=== PATIENT | male | born 1960 | race American Indian/Alaskan Native ===

== ENCOUNTER 2017-05-19 01:06 | Emergency (ER) | payer OTHER ==
[~2017-05-19] VITALS: Ht 180.3 cm; Wt 101.2 kg
[~2017-05-19 01:06] MED LIST: ALDACTAZIDE 251 EACH PO; AMLODIPINE BESYL5 MG PO; ASPIR 8181 MG PO; ASPIRIN EC81 MG PO; AVAPRO300 MG PO; BACTRIM DS TAB1 EACH PO; CARAFATE1 GM/10 ML PO; CEPHALEXIN500 MG PO; CLOPIDOGREL75 MG PO; CLOTRIMAZOLE10 MG MM; COREG12.5 MG PO; COREG25 MG PO; COREG6.25 MG PO; CRESTOR40 MG PO; CRESTOR5 MG PO; DOXYCYCLINE HY100 MG PO; FENOFIBRATE160 MG PO; FLEXERIL10 MG PO; FLOMAX0.4 MG PO; GEMFIBROZIL600 MG PO; HYDROCODONE-AC118 ML PO; ISOSORBIDE MONO30 MG PO; LOSARTAN POTASS25 MG PO; MELOXICAM15 MG PO; METFORMIN HCL500 MG PO; NAPROXEN SODIU550 MG PO; NITROGLYCERIN0.4 MG SL; NORCO 5-325 TA1 EACH PO; NYSTATIN100000 UN1 PO; OMEPRAZOLE20 MG PO; PANTOPRAZOLE SO40 MG PO; PEPCID20 MG PO; PERCOCET 5-3251 EACH PO; PRAVACHOL40 MG PO; PRILOSEC20 MG PO; PROVENTIL HFA6.7 GM INH; RANITIDINE HCL300 M1 PO; SPIRONOLACTONE50 MG PO; TRAMADOL HCL50 MG PO; ZANAFLEX4 MG PO; ZITHROMAX250 MG PO
[2017-05-19] MEDS ORDERED: ZOFRAN ODT4 MG PO (01:21)
== END 2017-05-19 01:30 | disposition home or self-care (01) ==
LOC: ED 01:06
DX: K29.70 Gastritis, unspecified, without bleeding (principal); I10 Essential (primary) hypertension; E78.5 Hyperlipidemia, unspecified; I25.2 Old myocardial infarction; Z95.5 Presence of coronary angioplasty implant and graft; Z90.49 Acquired absence of other specified parts of digestive tract; Z88.1 Allergy status to other antibiotic agents; Z88.8 Allergy status to other drugs, medicaments and biological substances; Z79.82 Long term (current) use of aspirin; Z79.899 Other long term (current) drug therapy
CPT/HCPCS: 99283

== ENCOUNTER 2017-06-04 14:59 | Emergency (ER) | payer OTHER ==
[~2017-06-04] VITALS: Ht 180.3 cm; Wt 101.2 kg
[~2017-06-04 14:59] MED LIST changes: +ZOFRAN ODT4 MG PO
[2017-06-04] MEDS ORDERED: MAGNESIUM250 M1 PO (15:18)
--- OUTSIDE RECORDS SUMMARY | 2017-06-04 15:26 | XMS ---
Demographics + + + | Address | [address] | | | [address] | | | [place] [address] | + + + | Preferred Language | Unknown | + + + | Marital Status | Unknown | + + + | Synagogue Affiliation | Unknown | + + + | Race | Unknown | + + + | Ethnic Group | Unknown | + + + Author + + + | Author | [facility] | + + + | Organization | [facility] | + + + | Address | [address] | | | [place] [address] | + + + | Phone | | + + + Care Team Providers + + + + | Care Window Framer Name | Role | Phone | + + + + Unavailable | Unavailable | + + + + PROBLEMS +---------+ + + +--------+ + + | Type | Condition | ICD9-CM | [id number] | Onset | Condition | SNOMED | | | | Code | Code | Dates | Status | Code | +---------+ + + +--------+ + + | Problem | Influenza | | Z23 | | Active | [id number] | | | vaccine | | | | | 106 | | | needed | | | | | | +---------+ + + +--------+ + + | Problem | Screening | Z13.89 | | | Active | [id number] | | | for | | | | | | | | alcoholism | | | | | | +---------+ + + +--------+ + + | Problem | Hypertensi | I11.9 | | | Active | 34184759 | | | ve | | | | | | | | arterioscl | | | | | | | | erotic | | | | | | | | cardiovasc | | | | | | | | ular | | | | | | | | disease | | | | | | +---------+ + + +--------+ + + | Problem | Gastroesop | K21.9 | | | Active | [id number] | | | hageal | | | | | | | | reflux | | | | | | | | disease | | | | | | | | without | | | | | | | | esophagiti | | | | | | | | s | | | | | | +---------+ + + +--------+ + + | Problem | Essential | | I10 | | Active | 38849464 | | | hypertensi | | | | | | | | on | | | | | | +---------+ + + +--------+ + + | Problem | Type 2 | E11.9 | | | Active | 223837914 | | | diabetes | | | | | | | | mellitus | | | | | | | | without | | | | | | | | complicati | | | | | | | | on | | | | | | +---------+ + + +--------+ + + | Problem | Hyperchole | | E78.0 | | Active | [id number] | | | steremia | | | | | | +---------+ + + +--------+ + + ALLERGIES Unknown Allergies SOCIAL HISTORY No smoking Hx information available PLAN OF CARE VITAL SIGNS MEDICATIONS + + + + +--------+ + +--------+ | Medicati | Instruct | Dosage | Frequenc | Start | End Date | Duration | Status | | on | ions | | y | Date | | | | + + + + +--------+ + +--------+ | Carvedil | Orally | 1 tablet | | | | 30 days | Active | | ol 25 MG | twice | | | | | | | | | daily | | | | | | | + + + + +--------+ + +--------+ RESULTS No Results PROCEDURES No Known procedures IMMUNIZATIONS No Known Immunizations"
--- OUTSIDE RECORDS SUMMARY | 2017-06-04 15:26 | XMS ---
Demographics + + + | Address | [address] | | | [address] | | | [place] [address] | + + + | Preferred Language | Unknown | + + + | Marital Status | Unknown | + + + | Yazidism Affiliation | Unknown | + + + | Race | Unknown | + + + | Ethnic Group | Unknown | + + + Author + + + | Author | [facility] | + + + | Organization | [facility] | + + + | Address | [address] | | | [place] [address] | + + + | Phone | | + + + Care Team Providers + + + + | Care Tax Director Name | Role | Phone | + + + + Unavailable | Unavailable | + + + + PROBLEMS +---------+ + + +--------+ + + | Type | Condition | ICD9-CM | [id number] | Onset | Condition | SNOMED | | | | Code | Code | Dates | Status | Code | +---------+ + + +--------+ + + | Problem | Influenza | | Z23 | | Active | [id number] | | | vaccine | | | | | 106 | | | needed | | | | | | +---------+ + + +--------+ + + | Problem | Screening | Z13.89 | | | Active | 417362828 | | | for | | | | | | | | alcoholism | | | | | | +---------+ + + +--------+ + + | Problem | Hypertensi | I11.9 | | | Active | 94987000 | | | ve | | | [...] | K21.9 | | | Active | 162464818 | | | hageal | | | [...] | | I10 | | Active | 82763832 | | | hypertensi | | | | | | | | on | | | | | | +---------+ + + +--------+ + + | Problem | Type 2 | E11.9 | | | Active | 691174577 | | | diabetes | | | | | | | | mellitus | | | | | | | | without | | | | | | | | complicati | | | | | | | | on | | | | | | +---------+ + + +--------+ + + | Problem | Hyperchole | | E78.0 | | Active | 897616396 | | | steremia | | | | | | +---------+ + + +--------+ + + ALLERGIES + + + + +--------+ | Substance | Reaction | Event Type | Date | Status | + + + + +--------+ | Penicillin | Unknown | Drug Allergy | Jan, | Active | + + + + +--------+ | Lipitor | rash | Drug Allergy | Jan, | Active | + + + + +--------+ SOCIAL HISTORY No smoking Hx information available PLAN OF CARE + +---------+ | Activity | Details | + +---------+ +---+ | | +---+ + + + | Follow Up | prn Reason:null | + + + | Pending Test | Glucose, Finger Stick (IH) | + + + VITAL SIGNS + + + + | Height | 71 in | 2017-02-10 | + + + + | Weight | 223.9 lbs | 2017-02-10 | + + + + | BMI | 31.22 kg/m2 | 2017-02-10 | + + + + | Heart Rate | 61 /min | 2017-02-10 | + + + + | Blood pressure systolic | 126 mm Hg | 2017-02-10 | + + + + | Blood pressure diastolic | 71 mm Hg | 2017-02-10 | + + + + MEDICATIONS + + + + +--------+ + +--------+ | Medicati | Instruct | Dosage | Frequenc | Start | End Date | Duration | Status | | on | ions | | y | Date | | | | + + + + +--------+ + +--------+ | Metformi | Orally | 2 | 12h | | | 30 days | Active | | n HCl | Twice a | tablets | | | | | | | 500 MG | day | | | | | | | + + + + +--------+ + +--------+ | Magnesiu | Orally | 1 tablet | 24h | | | 30 | Active | | m 250 MG | Once a | with a | | | | day(s) | | | | day | meal | | | | | | + + + + +--------+ + +--------+ | Losartan | Orally | 1 tablet | 12h | | | | Active | | | bid | | | | | | | | Potassiu | | | | | | | | | m 25 MG | | | | | | | | + + + + +--------+ + +--------+ | Carvedil | Orally | 1 tablet | 12h | | | | Active | | ol 25 MG | Twice a | with | | | | | | | | day | food | | | | | | + + + + +--------+ + +--------+ | Aspirin | orally | 1 tablet | 24h | | | 30 | Active | | 81 mg | Once a | | | | | | | | | day | | | | | | | + + + + +--------+ + +--------+ RESULTS No Results PROCEDURES + + + + + | Procedure | Date Ordered | Related Diagnosis | Body Site | + + + + + | REAGENT STRIP/BLOOD | February 10, 2017 | | | | GLUCOSE | | | | + + + + + | INJ KETOROLAC | February 10, 2017 | | | | TROMETHAMINE 15 MG | | | | + + + + + | Est Level III | February 10, 2017 | | | | Intermediate | | | | + + + + + | INJECTION | February 10, 2017 | | | | INTRAMUSCULAR OR | | | | | SUBCUTANEOUS | | | | + + + + + IMMUNIZATIONS + + + + + | Vaccine | Route | Administration Date | Status | + + + + + | Ketorolac 60mg/2ml | IM Intramuscular | February 10, 2017 | Administered | + + + + +"
--- OUTSIDE RECORDS SUMMARY | 2017-06-04 15:26 | XMS ---
Demographics + + + | Address | [address] | | | [address] | | | [place] [address] | + + + | Preferred Language | Unknown | + + + | Marital Status | Unknown | + + + | Adventism Affiliation | Unknown | + + + | Race | Unknown | + + + | Ethnic Group | Unknown | + + + Author + + + | Author | [facility] | + + + | Organization | [facility] | + + + | Address | [address] | | | [place] [address] | + + + | Phone | | + + + Care Team Providers + + + + | Care Manager Fleet Name | Role | Phone | + + + + Unavailable | Unavailable | + + + + PROBLEMS +---------+ + + +--------+ + + | Type | Condition | ICD9-CM | [id number] | Onset | Condition | SNOMED | | | | Code | Code | Dates | Status | Code | +---------+ + + +--------+ + + | Problem | Influenza | | Z23 | | Active | [id number] | | | vaccine | | | | | 106 | | | needed | | | | | | +---------+ + + +--------+ + + | Problem | Screening | Z13.89 | | | Active | 391242660 | | | for | | | | | | | | alcoholism | | | | | | +---------+ + + +--------+ + + | Problem | Hypertensi | I11.9 | | | Active | 02616698 | | | ve | | | [...] | K21.9 | | | Active | 994941120 | | | hageal | | | [...] | | I10 | | Active | 64652658 | | | hypertensi | | | | | | | | on | | | | | | +---------+ + + +--------+ + + | Problem | Type 2 | E11.9 | | | Active | 502979655 | | | diabetes | | | | | | | | mellitus | | | | | | | | without | | | | | | | | complicati | | | | | | | | on | | | | | | +---------+ + + +--------+ + + | Problem | Hyperchole | | E78.0 | | Active | 379867023 | | | steremia | | | [...] + + + | Follow Up | as scheduled with PCP Reason:null | + + + VITAL SIGNS + + + + | Height | 71 in | 2017-02-12 | + + + + | Weight | 224.4 lbs | 2017-02-12 | + + + + | BMI | 31.29 kg/m2 | 2017-02-12 | + + + + | Temperature | 97.9 degrees Fahrenheit | 2017-02-12 | + + + + | Heart Rate | 66 /min | 2017-02-12 | + + + + | Blood pressure systolic | 122 mm Hg | 2017-02-12 | + + + + | Blood pressure diastolic | 80 mm Hg | 2017-02-12 | + + + + MEDICATIONS + + + + + + + +--------+ | Medicati | Instruct | Dosage | Frequenc | Start | End Date | Duration | Status | | on | ions | | y | Date | | | | + + + + + + + +--------+ | Aspirin | orally | 1 tablet | 24h | | | 30 | Active | | 81 mg | Once a | | | | | | | | | day | | | | | | | + + + + + + + +--------+ | Ibuprofe | Orally | 1 tablet | 8h | | | 7 days | Active | | n 600 MG | Three | | | | | | | | | times a | | | | | | | | | day | | | | | | | + + + + + + + +--------+ | Magnesiu | Orally | 1 tablet | 24h | | | 30 | Active | | m 250 MG | Once a | with a | | | | day(s) | | | | day | meal | | | | | | + + + + + + + +--------+ | Carvedil | Orally | 1 tablet | 12h | | | | Active | | ol 25 MG | Twice a | with | | | | | | | | day | food | | | | | | + + + + + + + +--------+ | Metformi | Orally | 2 | 12h | | | 30 days | Active | | n HCl | Twice a | tablets | | | | | | | 500 MG | day | | | | | | | + + + + + + + +--------+ | Tizanidi | Orally | 1 tablet | 8h | 20 Henrry, | 25 Henrry, | 5 days | Active | | ne HCl 4 | Three | as | | 2016 | 2016 | | | | MG | times a | needed | | | | | | | | day | | | | | | | + + + + + + + +--------+ | Losartan | Orally | 1 tablet | 12h | | | | Active | | | bid | | | | | | | | Potassiu | | | | | | | | | m 25 MG | | | | | | | | + + + + + + + +--------+ RESULTS No Results PROCEDURES + + + + + | Procedure | Date Ordered | Related Diagnosis | Body Site | + + + + + | Est Level III | February 12, 2017 | | | | Intermediate | | | | + + + + + | INJ KETOROLAC | February 12, 2017 | | | | TROMETHAMINE 15 MG | | | | + + + + + | INJECTION | February 12, 2017 | | | | INTRAMUSCULAR OR | | | | | SUBCUTANEOUS | | | | + + + + + IMMUNIZATIONS + + + + + | Vaccine | Route | Administration Date | Status | + + + + + | Ketorolac 60mg/2ml | IM Intramuscular | February 12, 2017 | Administered | + + + + +"
--- OUTSIDE RECORDS SUMMARY | 2017-06-04 15:26 | XMS ---
Demographics + + + | Address | [address] | | | [address] | | | [place] [address] | + + + | Preferred Language | Unknown | + + + | Marital Status | Unknown | + + + | Gnosticism Affiliation | Unknown | + + + | Race | Unknown | + + + | Ethnic Group | Unknown | + + + Author + + + | Author | [facility] | + + + | Organization | [facility] | + + + | Address | [address] | | | [place] [address] | + + + | Phone | | + + + Care Team Providers + + + + | Care Airport Screener Name | Role | Phone | + + + + Unavailable | Unavailable | + + + + PROBLEMS +---------+ + + +--------+ + + | Type | Condition | ICD9-CM | [id number] | Onset | Condition | SNOMED | | | | Code | Code | Dates | Status | Code | +---------+ + + +--------+ + + | Problem | Essential | | I10 | | Active | 84430433 | | | hypertensi | | | | | | | | on | | | | | | +---------+ + + +--------+ + + | Problem | Influenza | | Z23 | | Active | 0116180393 | | | vaccine | | | | | 106 | | | needed | | | | | | +---------+ + + +--------+ + + | Problem | ASHD | | I25.10 | | Active | 55606644 | | | (arteriosc | | | | | | | | lerotic | | | | | | | | heart | | | | | | | | disease) | | | | | | +---------+ + + +--------+ + + | Problem | Screening | Z13.89 | | | Active | 109054639 | | | for | | | | | | | | alcoholism | | | | | | +---------+ + + +--------+ + + | Problem | Hyperchole | | E78.0 | | Active | 069643305 | | | steremia | | | | | | +---------+ + + +--------+ + + | Problem | Gastroesop | K21.9 | | | Active | 318377281 | | | hageal | | | [...] | I11.9 | | | Active | 12686548 | | | ve | | | [...] | E11.9 | | | Active | 033812550 | | | diabetes | | | [...] 1 tablet | 12h | | | 30 days | Active | | | twice a | | | | | | | | Potassiu | day | | | | | | | | m 50 MG | | | | | | | | + + + + +--------+ + +--------+ RESULTS No Results PROCEDURES No Known procedures IMMUNIZATIONS No Known Immunizations"
--- OUTSIDE RECORDS SUMMARY | 2017-06-04 15:26 | XMS ---
Demographics + + + | Address | [address] | | | [address] | | | [place] [address] | + + + | Preferred Language | Unknown | + + + | Marital Status | Unknown | + + + | Scientology Affiliation | Unknown | + + + | Race | Unknown | + + + | Ethnic Group | Unknown | + + + Author + + + | Author | [facility] | + + + | Organization | [facility] | + + + | Address | [address] | | | [place] [address] | + + + | Phone | | + + + Care Team Providers + + + + | Care Professional System Administrator Name | Role | Phone | + + + + Unavailable | Unavailable | + + + + PROBLEMS +---------+ + + +--------+ + + | Type | Condition | ICD9-CM | [id number] | Onset | Condition | SNOMED | | | | Code | Code | Dates | Status | Code | +---------+ + + +--------+ + + | Problem | Influenza | | Z23 | | Active | [id number] | | | vaccine | | | | | 106 | | | needed | | | | | | +---------+ + + +--------+ + + | Problem | Screening | Z13.89 | | | Active | 071550390 | | | for | | | | | | | | alcoholism | | | | | | +---------+ + + +--------+ + + | Problem | Hypertensi | I11.9 | | | Active | 36099255 | | | ve | | | [...] | K21.9 | | | Active | 837090363 | | | hageal | | | [...] | | I10 | | Active | 32117698 | | | hypertensi | | | | | | | | on | | | | | | +---------+ + + +--------+ + + | Problem | Type 2 | E11.9 | | | Active | 184197277 | | | diabetes | | | | | | | | mellitus | | | | | | | | without | | | | | | | | complicati | | | | | | | | on | | | | | | +---------+ + + +--------+ + + | Problem | Hyperchole | | E78.0 | | Active | 126211914 | | | steremia | | | | | | +---------+ + + +--------+ + + ALLERGIES Unknown Allergies SOCIAL HISTORY No smoking Hx information available PLAN OF CARE VITAL SIGNS MEDICATIONS Unknown Medications RESULTS No Results PROCEDURES No Known procedures IMMUNIZATIONS No Known Immunizations"
--- OUTSIDE RECORDS SUMMARY | 2017-06-04 15:26 | XMS ---
Demographics + + + | Address | [address] | | | [address] | | | [place] [address] | + + + | Preferred Language | Unknown | + + + | Marital Status | Unknown | + + + | Taoism Affiliation | Unknown | + + + | Race | Unknown | + + + | Ethnic Group | Unknown | + + + Author + + + | Author | [facility] | + + + | Organization | [facility] | + + + | Address | [address] | | | [place] [address] | + + + | Phone | | + + + Care Team Providers + + + + | Care Conservation Scientist Name | Role | Phone | + + + + Unavailable | Unavailable | + + + + PROBLEMS +---------+ + + +--------+ + + | Type | Condition | ICD9-CM | [id number] | Onset | Condition | SNOMED | | | | Code | Code | Dates | Status | Code | +---------+ + + +--------+ + + | Problem | Influenza | | Z23 | | Active | [id number] | | | vaccine | | | | | 106 | | | needed | | | | | | +---------+ + + +--------+ + + | Problem | Screening | Z13.89 | | | Active | 671835087 | | | for | | | | | | | | alcoholism | | | | | | +---------+ + + +--------+ + + | Problem | Hypertensi | I11.9 | | | Active | 08696178 | | | ve | | | [...] | K21.9 | | | Active | 888419077 | | | hageal | | | [...] | | I10 | | Active | 53468320 | | | hypertensi | | | | | | | | on | | | | | | +---------+ + + +--------+ + + | Problem | Type 2 | E11.9 | | | Active | 983175830 | | | diabetes | | | | | | | | mellitus | | | | | | | | without | | | | | | | | complicati | | | | | | | | on | | | | | | +---------+ + + +--------+ + + | Problem | Hyperchole | | E78.0 | | Active | 916652032 | | | steremia | | | | | | +---------+ + + +--------+ + + ALLERGIES + + + + +--------+ | Substance | Reaction | Event Type | Date | Status | + + + + +--------+ | Penicillin | Unknown | Drug Allergy | Feb, | Active | + + + + +--------+ | Lipitor | rash | Drug Allergy | Feb, | Active | + + + + +--------+ SOCIAL HISTORY No smoking Hx information available PLAN OF CARE + +---------+ | Activity | Details | + +---------+ +---+ | | +---+ + + + | Follow Up | has f/u kade Reason:null | + + + VITAL SIGNS + + + + | Height | 71 in | 2017-03-10 | + + + + | Weight | 232.5 lbs | 2017-03-10 | + + + + | BMI | 32.42 kg/m2 | 2017-03-10 | + + + + | Heart Rate | 60 /min | 2017-03-10 | + + + + | Blood pressure systolic | 155 mm Hg | 2017-03-10 | + + + + | Blood pressure diastolic | 80 mm Hg | 2017-03-10 | + + + + MEDICATIONS + + + + + + + +--------+ | Medicati | Instruct | Dosage | Frequenc | Start | End Date | Duration | Status | | on | ions | | y | Date | | | | + + + + + + + +--------+ | Diclofen | Orally | 1 tablet | 12h | 17 Feb, | 13 Sam, | 30 | Active | | ac | Twice a | with | | 2016 | 2018 | day(s) | | | Sodium | day | food or | | | | | | | 75 MG | | milk | | | | | | + [...] + + | Est Level III | March 10, 2017 | | | | Intermediate | | | | + + + + + IMMUNIZATIONS No Known Immunizations"
--- OUTSIDE RECORDS SUMMARY | 2017-06-04 15:26 | XMS ---
Demographics + + + | Address | [address] | | | [address] | | | [place] [address] | + + + | Preferred Language | Unknown | + + + | Marital Status | Unknown | + + + | Scientologist Affiliation | Unknown | + + + | Race | Unknown | + + + | Ethnic Group | Unknown | + + + Author + + + | Author | [facility] | + + + | Organization | [facility] | + + + | Address | [address] | | | [place] [address] | + + + | Phone | | + + + Care Team Providers + + + + | Care Flight Line Mechanic Name | Role | Phone | + + + + Unavailable | Unavailable | + + + + PROBLEMS +---------+ + + +--------+ + + | Type | Condition | ICD9-CM | [id number] | Onset | Condition | SNOMED | | | | Code | Code | Dates | Status | Code | +---------+ + + +--------+ + + | Problem | Essential | | I10 | | Active | [id number] | | | hypertensi | | | | | | | | on | | | | | | +---------+ + + +--------+ + + | Problem | Influenza | | Z23 | | Active | [id number] | | | vaccine | | | | | 106 | | | needed | | | | | | +---------+ + + +--------+ + + | Problem | ASHD | | I25.10 | | Active | 49002957 | | | (arteriosc | | | | | | | | lerotic | | | | | | | | heart | | | | | | | | disease) | | | | | | +---------+ + + +--------+ + + | Problem | Screening | Z13.89 | | | Active | [id number] | | | for | | | | | | | | alcoholism | | | | | | +---------+ + + +--------+ + + | Problem | Hyperchole | | E78.0 | | Active | 144395256 | | | steremia | | | | | | +---------+ + + +--------+ + + | Problem | Gastroesop | K21.9 | | | Active | 681231867 | | | hageal | | | [...] | I11.9 | | | Active | 43670873 | | | ve | | | [...] | E11.9 | | | Active | 506343144 | | | diabetes | | | | | | | | mellitus | | | | | | | | without | | | | | | | | complicati | | | | | | | | on | | | | | | +---------+ + + +--------+ + + ALLERGIES No Information SOCIAL HISTORY Never Assessed PLAN OF CARE VITAL SIGNS MEDICATIONS Unknown Medications RESULTS No Results PROCEDURES No Known procedures IMMUNIZATIONS No Known Immunizations MEDICAL (GENERAL) HISTORY + + + + | Type | Description | Date | + + + + | Medical History | CAD - DC anterior wall 2006 | | | | s/p 2 stents, Non ST | | | | elevated DC s/p 3 stents | | | | 08/2012 | | + + + + | Medical History | Ischemic and/or dilated | | | | Cardiomyopathy EF 20%, Echo | | | | 2009 | | + + + + | Medical History | Implantable cardioverter | | | | defibrillator (ICD) placed | | | | 12/08/13 | | + + + + | 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 05/04/15 | | | | x-ray no change-most | | | | likely represents scar. 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 | | + + + + | Medical History | hx/o pancreatitis | | + + + + | Medical History | pt declines the influenza | | | | vaccine 06/24/14 | | + + + + | Surgical History | b/l chest tubes | 07/14/09 | + + + + | Surgical History | excision of denuded | 07/16/09 | | | epidermis, total of | | | | 16,400cm, 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 | | | | 16,400cm, 2 on the trunk | | | | upper and lower extremity | | + + + + | Surgical History | tracheostomy | 08/09/09 | + + + + | Surgical History | PEG tube | 08/16/09 | + + + + | Surgical History | Appendectomy | | + + + + | Surgical History | Knee surgery R, | 2005 | | | arthroscopic | | + + + + | Surgical History | s/p Coronry Angiography and | 08/2012 | | | stent placement | | + + + + | Surgical History | 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 | | | | Wendi | | + + + + | Surgical History | 2D Echo - severe | 03/29/15 | | | hypokinesis of LV, grade 1A | | | | diastolic dysfunction. | | + + + + | Surgical History | 07/04/16 Occult blood IA | | | | stool - positive, referred | | | | for colonoscopy. 07/12/16 | | | | pt refused to set up an | | | | appointment with the | | | | surgeon for colonoscopy. 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, ARDS | | + + + + | Hospitalization History | Hospitalized for persumed | 05/24-06/29/09 | | | viral pneumonia requiring | | | | mechanical ventillation, | | | | hemoptysis and alveolar | | | | hemorrhagic pneumonia with | | | | multilobular distribution | | + + + + | Hospitalization History | [facility] re: Impotence | 11/03/12 | + + + + | Hospitalization History | [facility]: chest pain | 02/18/13 | + + + + | Hospitalization History | [facility] re: Headache | 05/26/13 | + + + + | Hospitalization History | [facility] re:kidney pain | 06/20/13 | + + + + | Hospitalization History | [facility] re: mid back pain | 07/15/13 | + + + + | Hospitalization History | [facility] re: chest pain | 09/09/13 | + + + + | Hospitalization History | [facility] re: sore throat | 10/18/13 | + + + + | Hospitalization History | [facility] re: throat pain | 11/02/13 | + + + + | Hospitalization History | [facility] re: chest pain | 11/04-11/05/13 | + + + + | Hospitalization History | [facility] re: chest pain, | 12/22/13 | | | throat pain | | + + + + | Hospitalization History | [facility] re: chest pain | 03/10/14 | + + + + | Hospitalization History | [facility] re: abdominal pain | 10/05/14 | + + + + | Hospitalization History | [facility] re: abdominal pain | 11/09/14 | + + + + | Hospitalization History | [facility] re: leg pain | 11/20/15 | + + + + | Hospitalization History | [facility] re: weakness | 12/28/15 | + + + + | Hospitalization History | [facility] re: back pain | 02/12/17 | + + + + | Hospitalization History | [facility] re: nausea | 05/19/17 | + + + +"
--- OUTSIDE RECORDS SUMMARY | 2017-06-04 15:26 | XMS ---
Demographics + + + | Address | [address] | | | [address] | | | [place] [address] | + + + | Preferred Language | Unknown | + + + | Marital Status | Unknown | + + + | Rastafari Affiliation | Unknown | + + + | Race | Unknown | + + + | Ethnic Group | Unknown | + + + Author + + + | Author | [facility] | + + + | Organization | [facility] | + + + | Address | [address] | | | [place] [address] | + + + | Phone | | + + + Care Team Providers + + + + | Care Tacking Stitch Remover Name | Role | Phone | + + + + Unavailable | Unavailable | + + + + PROBLEMS +---------+ + + +--------+ + + | Type | Condition | ICD9-CM | [id number] | Onset | Condition | SNOMED | | | | Code | Code | Dates | Status | Code | +---------+ + + +--------+ + + | Problem | Influenza | | Z23 | | Active | [id number] | | | vaccine | | | | | 106 | | | needed | | | | | | +---------+ + + +--------+ + + | Problem | Screening | Z13.89 | | | Active | 532050528 | | | for | | | | | | | | alcoholism | | | | | | +---------+ + + +--------+ + + | Problem | Hypertensi | I11.9 | | | Active | 82575237 | | | ve | | | [...] | K21.9 | | | Active | 445249124 | | | hageal | | | [...] | | I10 | | Active | 38752646 | | | hypertensi | | | | | | | | on | | | | | | +---------+ + + +--------+ + + | Problem | Type 2 | E11.9 | | | Active | 257897875 | | | diabetes | | | | | | | | mellitus | | | | | | | | without | | | | | | | | complicati | | | | | | | | on | | | | | | +---------+ + + +--------+ + + | Problem | Hyperchole | | E78.0 | | Active | 544854674 | | | steremia | | | | | | +---------+ + + +--------+ + + ALLERGIES Unknown Allergies SOCIAL HISTORY No smoking Hx information available PLAN OF CARE VITAL SIGNS MEDICATIONS Unknown Medications RESULTS No Results PROCEDURES No Known procedures IMMUNIZATIONS No Known Immunizations"
--- OUTSIDE RECORDS SUMMARY | 2017-06-04 15:26 | XMS ---
Demographics + + + | Address | [address] | | | [address] | | | [place] [address] | + + + | Preferred Language | Unknown | + + + | Marital Status | Unknown | + + + | Moravian Affiliation | Unknown | + + + | Race | Unknown | + + + | Ethnic Group | Unknown | + + + Author + + + | Author | [facility] | + + + | Organization | [facility] | + + + | Address | [address] | | | [place] [address] | + + + | Phone | | + + + Care Team Providers + + + + | Care Supervisor Shuttle Veneering Name | Role | Phone | + + + + Unavailable | Unavailable | + + + + PROBLEMS +---------+ + + +--------+ + + | Type | Condition | ICD9-CM | [id number] | Onset | Condition | SNOMED | | | | Code | Code | Dates | Status | Code | +---------+ + + +--------+ + + | Problem | Influenza | | Z23 | | Active | [id number] | | | vaccine | | | | | 106 | | | needed | | | | | | +---------+ + + +--------+ + + | Problem | Screening | Z13.89 | | | Active | 819529738 | | | for | | | | | | | | alcoholism | | | | | | +---------+ + + +--------+ + + | Problem | Hypertensi | I11.9 | | | Active | 60554788 | | | ve | | | [...] | K21.9 | | | Active | 470898281 | | | hageal | | | [...] | | I10 | | Active | 12842272 | | | hypertensi | | | | | | | | on | | | | | | +---------+ + + +--------+ + + | Problem | Type 2 | E11.9 | | | Active | 248867123 | | | diabetes | | | | | | | | mellitus | | | | | | | | without | | | | | | | | complicati | | | | | | | | on | | | | | | +---------+ + + +--------+ + + | Problem | Hyperchole | | E78.0 | | Active | 667139143 | | | steremia | | | [...] | prn Reason:null | + + + VITAL SIGNS + + + + | Height | 71 in | 2017-03-04 | + + + + | Weight | 232.4 lbs | 2017-03-04 | + + + + | BMI | 32.41 kg/m2 | 2017-03-04 | + + + + | Heart Rate | 64 /min | 2017-03-04 | + + + + | Blood pressure systolic | 152 mm Hg | 2017-03-04 | + + + + | Blood pressure diastolic | 87 mm Hg | 2017-03-04 | + + + + MEDICATIONS + [...] + + + + + +--------+ | Meloxica | Orally | 1 tablet | 24h | 11 Feb, | 5 Mar, | 30 | Active | | m 15 MG | Once a | | | 2017 | 2018 | day(s) | | | | day | | [...] + | Est Level III | March 04, 2017 | | | | Intermediate | | | | + + + + + IMMUNIZATIONS No Known Immunizations"
--- OUTSIDE RECORDS SUMMARY | 2017-06-04 15:26 | XMS ---
Demographics + + + | Address | [address] | | | [address] | | | [place] [address] | + + + | Preferred Language | Unknown | + + + | Marital Status | Unknown | + + + | Temple Affiliation | Unknown | + + + | Race | Unknown | + + + | Ethnic Group | Unknown | + + + Author + + + | Author | [facility] | + + + | Organization | [facility] | + + + | Address | [address] | | | [place] [address] | + + + | Phone | | + + + Care Team Providers + + + + | Care Network Security Engineer Name | Role | Phone | + + + + Unavailable | Unavailable | + + + + PROBLEMS +---------+ + + +--------+ + + | Type | Condition | ICD9-CM | [id number] | Onset | Condition | SNOMED | | | | Code | Code | Dates | Status | Code | +---------+ + + +--------+ + + | Problem | Essential | | I10 | | Active | 79330894 | | | hypertensi | | | | | | | | on | | | | | | +---------+ + + +--------+ + + | Problem | Influenza | | Z23 | | Active | 0808588067 | | | vaccine | | | | | 106 | | | needed | | | | | | +---------+ + + +--------+ + + | Problem | ASHD | | I25.10 | | Active | 46736749 | | | (arteriosc | | | | | | | | lerotic | | | | | | | | heart | | | | | | | | disease) | | | | | | +---------+ + + +--------+ + + | Problem | Screening | Z13.89 | | | Active | 536284987 | | | for | | | | | | | | alcoholism | | | | | | +---------+ + + +--------+ + + | Problem | Hyperchole | | E78.0 | | Active | 359168698 | | | steremia | | | | | | +---------+ + + +--------+ + + | Problem | Gastroesop | K21.9 | | | Active | 035437649 | | | hageal | | | [...] | I11.9 | | | Active | 95442800 | | | ve | | | [...] | E11.9 | | | Active | 201541853 | | | diabetes | | | [...]
--- OUTSIDE RECORDS SUMMARY | 2017-06-04 15:26 | XMS ---
Demographics + + + | Address | [address] | | | [address] | | | [place] [address] | + + + | Preferred Language [...] | + + + | Organization | [facility] | + + + | Address | [address] | | | [place] [address] | + + + | Phone | | + + + Care Team Providers + + + + | Care Filler Shaker Name | Role | Phone | + + + + Unavailable | Unavailable | + + + + PROBLEMS +---------+ + + +--------+ + + | Type | Condition | ICD9-CM | [id number] | Onset | Condition | SNOMED | | | | Code | Code | Dates | Status | Code | +---------+ + + +--------+ + + | Problem | Influenza | | Z23 | | Active | [id number] | | | vaccine | | | | | 106 | | | needed | | | | | | +---------+ + + +--------+ + + | Problem | Screening | Z13.89 | | | Active | 631368902 | | | for | | | | | | | | alcoholism | | | | | | +---------+ + + +--------+ + + | Problem | Hypertensi | I11.9 | | | Active | 65788160 | | | ve | | | [...] | K21.9 | | | Active | 621633350 | | | hageal | | | [...] | | I10 | | Active | 76802749 | | | hypertensi | | | | | | | | on | | | | | | +---------+ + + +--------+ + + | Problem | Type 2 | E11.9 | | | Active | 495567482 | | | diabetes | | | | | | | | mellitus | | | | | | | | without | | | | | | | | complicati | | | | | | | | on | | | | | | +---------+ + + +--------+ + + | Problem | Hyperchole | | E78.0 | | Active | 040046845 | | | steremia | | | [...] tablet | 12h | | | 30 | Active | | | bid | | | | | day(s) | | | Potassiu | | | | | | | | | m 25 MG | | | | | | | | + + + + +--------+ + +--------+ RESULTS No Results PROCEDURES No Known procedures IMMUNIZATIONS No Known Immunizations"
--- OUTSIDE RECORDS SUMMARY | 2017-06-04 15:26 | XMS ---
Demographics + + + | Address | [address] | | | [address] | | | [place] [address] | + + + | Preferred Language | Unknown | + + + | Marital Status | Unknown | + + + | Judaism Affiliation | Unknown | + + + | Race | Unknown | + + + | Ethnic Group | Unknown | + + + Author + + + | Author | [facility] | + + + | Organization | [facility] | + + + | Address | [address] | | | [place] [address] | + + + | Phone | | + + + Care Team Providers + + + + | Care Ed Educational Aide Name | Role | Phone | + + + + Unavailable | Unavailable | + + + + PROBLEMS +---------+ + + +--------+ + + | Type | Condition | ICD9-CM | [id number] | Onset | Condition | SNOMED | | | | Code | Code | Dates | Status | Code | +---------+ + + +--------+ + + | Problem | Essential | | I10 | | Active | 39706012 | | | hypertensi | | | | | | | | on | | | | | | +---------+ + + +--------+ + + | Problem | Influenza | | Z23 | | Active | 9506536838 | | | vaccine | | | | | 106 | | | needed | | | | | | +---------+ + + +--------+ + + | Problem | ASHD | | I25.10 | | Active | 13297554 | | | (arteriosc | | | | | | | | lerotic | | | | | | | | heart | | | | | | | | disease) | | | | | | +---------+ + + +--------+ + + | Problem | Screening | Z13.89 | | | Active | 929244760 | | | for | | | | | | | | alcoholism | | | | | | +---------+ + + +--------+ + + | Problem | Hyperchole | | E78.0 | | Active | 524043788 | | | steremia | | | | | | +---------+ + + +--------+ + + | Problem | Gastroesop | K21.9 | | | Active | 835198815 | | | hageal | | | [...] | I11.9 | | | Active | 88056399 | | | ve | | | [...] | E11.9 | | | Active | 953859142 | | | diabetes | | | [...] Penicillin | Unknown | Drug Allergy | Apr, | Active | + + + + +--------+ | Lipitor | rash | Drug Allergy | Apr, | Active | + + + + +--------+ SOCIAL HISTORY No smoking Hx information available PLAN OF CARE + +---------+ | Activity | Details | + +---------+ +---+ | | +---+ + + + | Follow Up | 4 Weeks Reason:null | + + + | Pending Test | Lipid Profile | + + + VITAL SIGNS + + + + | Height | 71 in | 2017-05-05 | + + + + | Weight | 231.6 lbs | 2017-05-05 | + + + + | BMI | 32.30 kg/m2 | 2017-05-05 | + + + + | Temperature | 97.7 degrees Fahrenheit | 2017-05-05 | + + + + | Heart Rate | 59 /min | 2017-05-05 | + + + + | Blood pressure systolic | 156 mm Hg | 2017-05-05 | + + + + | Blood pressure diastolic | 92 mm Hg | 2017-05-05 | + + + + MEDICATIONS + [...] | 1 tablet | 24h | | 6 Oct, | 30 days | Active | | 81 mg | Once a | | | | 2018 | | | | | day | [...] + + + + | Est Level IV | Sept 2016 | | | | Extended | | | | + + + + + IMMUNIZATIONS No Known Immunizations"
[2017-06-04] MEDS ORDERED: FLAGYL500 MG PO (17:22)
== END 2017-06-04 17:35 | disposition home or self-care (01) ==
LOC: ED 14:59
DX: K52.9 Noninfective gastroenteritis and colitis, unspecified (principal); I10 Essential (primary) hypertension; E78.5 Hyperlipidemia, unspecified; I25.2 Old myocardial infarction; F17.200 Nicotine dependence, unspecified, uncomplicated; Z95.5 Presence of coronary angioplasty implant and graft; Z88.8 Allergy status to other drugs, medicaments and biological substances; Z88.1 Allergy status to other antibiotic agents; Z79.82 Long term (current) use of aspirin; Z79.899 Other long term (current) drug therapy
CPT/HCPCS: 74177; 80053; 85025; 96374; 96375; 99284; J1885; J2405; Q9967

== ENCOUNTER 2017-06-30 20:53 | Emergency (ER) | payer OTHER ==
[~2017-06-30] VITALS: Ht 180.3 cm; Wt 103.9 kg
[~2017-06-30 20:53] MED LIST changes: +FLAGYL500 MG PO; +MAGNESIUM250 M1 PO
[2017-06-30] MEDS ORDERED: LOSARTAN-HCTZ1 EAC1 PO (21:04)
--- NOTE | 2017-07-01 06:35 | EKG ---
[facility] [address] [facility] [place] [address] Signed Normal sinus rhythm Left axis deviation Nonspecific intraventricular conduction delay Nonspecific T wave abnormality Abnormal ECG When compared with ECG of 30-NOV-2016 04:21, Vent. rate has increased BY 33 BPM QRS duration has decreased Nonspecific T wave abnormality has replaced inverted T waves in Anterior leads Confirmed by ENMANUEL FREEMAN MD ([id number]) on 07/01/2017 6:34:54 AM Electronically Signed By: ENMANUEL FREEMAN MD 07/01/17 0635 PATIENT NAME: LURDES SHANNONLUI Electrocardiogram DATE OF : 56 PHYSICIAN: ENMANUEL FREEMAN MD REPORT #: [id number] REPORT IS CONFIDENTIAL AND NOT TO BE RELEASED WITHOUT AUTHORIZATION
== END 2017-07-01 01:27 | disposition home or self-care (01) ==
LOC: ED 20:53
DX: R07.9 Chest pain, unspecified (principal); I10 Essential (primary) hypertension; E78.00 Pure hypercholesterolemia, unspecified; I25.2 Old myocardial infarction; F17.200 Nicotine dependence, unspecified, uncomplicated; Z98.890 Other specified postprocedural states; Z90.49 Acquired absence of other specified parts of digestive tract; Z79.899 Other long term (current) drug therapy; Z88.1 Allergy status to other antibiotic agents; Z88.8 Allergy status to other drugs, medicaments and biological substances; Z79.82 Long term (current) use of aspirin
CPT/HCPCS: 71010; 80053; 84484; 85025; 93005; 93010; 99284

== ENCOUNTER 2018-02-19 11:54 | Emergency (ER) | payer OTHER ==
[~2018-02-19] VITALS: Ht 180.3 cm; Wt 104.3 kg
[~2018-02-19 11:54] MED LIST changes: +LOSARTAN-HCTZ1 EAC1 PO
[2018-02-19] MEDS ORDERED: METHYLPREDNISOLO4 M1 PO (13:29)
== END 2018-02-19 13:38 | disposition home or self-care (01) ==
LOC: ED 11:54
DX: M25.512 Pain in left shoulder (principal); I10 Essential (primary) hypertension; I25.2 Old myocardial infarction; E78.5 Hyperlipidemia, unspecified; E11.9 Type 2 diabetes mellitus without complications; Z88.8 Allergy status to other drugs, medicaments and biological substances; Z88.1 Allergy status to other antibiotic agents; Z79.899 Other long term (current) drug therapy; Z79.82 Long term (current) use of aspirin; Z79.84 Long term (current) use of oral hypoglycemic drugs
CPT/HCPCS: 99283

== ENCOUNTER 2018-11-18 09:37 | Emergency (ER) | payer OTHER ==
[~2018-11-18] VITALS: Ht 175.3 cm; Wt 103.4 kg
--- OUTSIDE RECORDS SUMMARY | ~2018-11-18 | XMS | Clinical Summary ---
Demographics + + + | Address | [address] | | | [place] [address] | + + + | Home Phone | | + + + | Preferred Language | Unknown | + + + | Marital Status | | + + + | Church Affiliation | Unknown | + + + | Race | Unknown | + + + | Ethnic Group | Unknown | + + + Author + + + | Author | [facility] | | | and [place] | + + + | Organization | [facility] | | | and [place] | + + + | Address | Unknown | + + + | Phone | Unavailable | + + + Care Team Providers + +------+ + | Care Associate Biological Sales Name | Role | Phone | + +------+ + | Liu Chow DO | PP | | + +------+ + Allergies + + + + + + | Active Allergy | Reactions | Severity | Noted | Comments | | | | | Date | | + + + + + + | Penicillins | | | 05/28/20 | | | | | | 18 | | + + + + + + Current Medications + + +-------+---------+------+------+-------+ | Prescription | Sig. | Disp. | Refills | Star | End | Statu | | | | | | t | Date | s | | | | | | Date | | | + + +-------+---------+------+------+-------+ | RA ASPIRIN EC 81 | 1 tablet Once a day | | 1 | 10/0 | | Activ | | MG EC tablet | orally 30 days | | | /20 | | e | | | | | | 18 | | | + + +-------+---------+------+------+-------+ | atorvaSTATin | Take 80 mg by mouth. | | | 08/27 | | Activ | | (LIPITOR) 80 MG | | | | 09/13 | | e | | tablet | | | | 18 | | | + + +-------+---------+------+------+-------+ | carvedilol (COREG) | Take 12.5 mg by | | 0 | 04/25 | | Activ | | 12.5 mg tablet | mouth 2 times daily | | | 12/12 | | e | | | (with breakfast & | | | 18 | | | | | dinner). | | | | | | + + +-------+---------+------+------+-------+ | losartan (COZAAR) | Take 50 mg by mouth. | | | 09/26 | | Activ | | 50 mg tablet | | | | 09/13 | | e | | | | | | 18 | | | + + +-------+---------+------+------+-------+ | MAGNESIUM PO | Take 250 mg by | | | | | Activ | | | mouth. | | | | | e | + + +-------+---------+------+------+-------+ | tamsulosin | take 1 capsule by | | 0 | 09/1 | | Activ | | (FLOMAX) 0.4 mg CAPS | mouth at bedtime | | | 3/20 | | e | | | | | | 18 | | | + + +-------+---------+------+------+-------+ | pravastatin | Take 80 mg by mouth | | 1 | 11/0 | | Activ | | (PRAVACHOL) 80 MG | Daily. | | | 5/20 | | e | | tablet | | | | 18 | | | + + +-------+---------+------+------+-------+ | metFORMIN | Take 1,000 mg by | | 1 | 11/0 | | Activ | | (GLUCOPHAGE) 500 mg | mouth 2 times daily. | | | 5/20 | | e | | tablet | | | | 18 | | | + + +-------+---------+------+------+-------+ Active Problems + + + | Problem | Noted Date | + + + | S/P CABG x 5 | 10/15/2017 | + + + + + | Overview: Overview: Op Report 09/18/2017CABG X 5. MACIAS to | | LAD, SVG to Diag, SVG to OM, SVG to PDA and SVG to PLV. | |CABG X 5. MACIAS to LAD, SVG to Diag, SVG to OM, SVG to PDA and SVG to PLV. | + + + + + | Coronary atherosclerosis | 03/11/2014 | + + + | DM type 2 (diabetes mellitus, type 2) (HCC) | 03/10/2014 | + + + | Dyslipidemia | 03/10/2014 | + + + | HTN (hypertension) | 03/10/2014 | + + + | AICD (automatic cardioverter/defibrillator) present | 02/01/2014 | + + + + + | Overview: Overview: | | Overview: | | Medtronic Evera XT ICD | | | | Overview: | | Medtronic Evera XT DR ICD | + + + + + | Ischemic cardiomyopathy | 12/07/2013 | + + + Family History + + +------+ + | Medical History | Relation | Name | Comments | + + +------+ + | Prostate cancer | Neg Hx | | | + + +------+ + + +------+--------+ + | Relation | Name | Status | Comments | + +------+--------+ + | Father | | Alive | | + +------+--------+ + | Mother | | Alive | | + +------+--------+ + Social History + + + +--------+------+ | Tobacco Use | Types | Packs/Day | Years | Date | | | | | Used | | + + + +--------+------+ | Current Some Day | Pipe, Cigarettes | | | | | Smoker | | | | | + + + +--------+------+ + +---+---+---+ | Smokeless Tobacco: | | | | | Never Used | | | | + +---+---+---+ + + | Comments: 1-2 times a month | + + + + +---------+ + | Alcohol Use | Drinks/We | oz/Week | Comments | | | ek | | | + + +---------+ + | No | | | | + + +---------+ + + + + | Sex Assigned at | Date Recorded | | | | + + + | Not on file | | + + + Last Filed Vital Signs + + + + | Vital Sign | Reading | Time Taken | + + + + | Blood Pressure | 124/76 | 07/02/2018 1014 PST | + + + + | Pulse | 72 | 07/02/2018 1014 PST | + + + + | Temperature | - | - | + + + + | Respiratory Rate | 18 | 07/02/20181013 PST | + + + + | Oxygen Saturation | - | - | + + + + | Inhaled Oxygen | - | - | | Concentration | | | + + + + | Weight | 104.1 kg (229 lb 8 | 07/02/20181013 PST | | | oz) | | + + + + | Height | 179.5 cm (5' ") | 07/02/20184 PST | + + + + | Body Mass Index | 32.31 | 07/02/20184 PST | + + + + Plan of Treatment + + + + + | Health Maintenance | Due Date | Last Done | Comments | + + + + + | Hepatitis C | | | | | Screening | 8 | | | + + + + + | Diabetic Eye Exam | | | | | | 6 | | | + + + + + | Diabetic Foot Exam | | | | | | 6 | | | + + + + + | Vaccine: | | | | | Dtap/Tdap/Td (1 - | 7 | | | | Tdap) | | | | + + + + + | Vaccine: | | | | | Pneumococcal 19-64 | 7 | | | | (PPSV23 only) Medium | | | | | Risk (1 of 1 - | | | | | PPSV23) | | | | + + + + + | Vaccine: Zoster (1 | | | | | of 2) | 8 | | | + + + + + | Vaccine: Influenza | | | | | (#1) | 8 | | | + + + + + | Hemoglobin A1c Q6 | | 06/05/2018 | | | Months | 9 | | | + + + + + | Colorectal Cancer | | 09/25/2016 | | | Screening | 7 | | | | (Colonoscopy) | | | | + + + + + Results Not on filefrom Last 3 Months Insurance + +--------+ +--------+ +---------+ | Payer | Benefi | Subscriber | Type | Phone | Address | | | t Plan | ID | | | | | | / | | | | | | | Group | | | | | + +--------+ +--------+ +---------+ | [employer] | MODA | [id number] | Medica | [phone] | | | MEDICAID HMO | HEALTH | | id | [id number] | | | | MDCD | | | | | | | [place] | | | | | + +--------+ +--------+ +---------+ + +--------+ +--------+ + + | Guarantor Name | Accoun | Relation to | Date | Phone | Billing Address | | | t Type | Patient | of | | | | | | | | | | + +--------+ +--------+ + + | JOSHUA LUU | Person | Self [birth year] | Home: | [address] | | | al/Fam | | 1959 | [phone] [address] [place] | | | [place] | | | [phone] | [phone] | + +--------+ +--------+ + +
--- OUTSIDE RECORDS SUMMARY | ~2018-11-18 | XMS | Clinical Summary ---
Demographics + + + | Address | [address] | | | [place] [address] | + + + | Home Phone | | + + + | Preferred Language | Unknown | + + + | Marital Status | | + + + | Islam Affiliation | Unknown | + + + | Race | Unknown | + + + | Ethnic Group | Unknown | + + + Author + + + | Author | [facility] | | | and [place] | + + + | Organization | [facility] | | | and [place] | + + + | Address | Unknown | + + + | Phone | Unavailable | + + + Care Team Providers + +------+ + | Care Diesel Technology Instructor Name | Role | Phone | + [...] | [employer] | MODA | [id number] | Medica | [phone] | | | MEDICAID HMO | HEALTH [...] Self | [birth year] | Home: | [address] | | | al/Fam | | 1959 | [phone] [address] [place] | | | [place] | | | [phone] | [phone] | + +--------+ +--------+ + +
--- OUTSIDE RECORDS SUMMARY | ~2018-11-18 | XMS | Encounter Summary ---
Demographics + + + | Address | [address] | | | [place] [address] | + + + | Home Phone | | + + + | Preferred Language | Unknown | + + + | Marital Status | | + + + | Yazidi Affiliation | Unknown | + + + | Race | Unknown | + + + | Ethnic Group | Unknown | + + + Author + + + | Author | [facility] | + + + | Organization | [email or web address] | + + + | Address | Unknown | + + + | Phone | Unavailable | + + + Support + + +---------+ + | Name | Relationship | Address | Phone | + + +---------+ + | Contact,No | ECON | Unknown | | + + +---------+ + Care Team Providers + +------+ + | Care Catering Sales Manager Name | Role | Phone | + +------+ + | Liu Chow DO | PCP | Unavailable | + +------+ + Reason for Visit + + + | Reason | Comments | + + + | Medication Refill | | + + + Encounter Details +--------+--------+ + + + | Date | Type | Department | Care Team | Description | +--------+--------+ + + + | 10/17/ | Refill | [facility] [place] | Danielle Cadena, | Medication Refill | | 2019 | | [facility] [place] | [address] | | | | | [address] | [address], | | | | | [facility] [address] | [place] [address] | | | | | [place] [address] | [phone] | | | | | [phone] | | | +--------+--------+ + + + Social History + +-------+ +--------+ + | Tobacco Use | Types | Packs/Day | Years | Date | | | | | Used | | + +-------+ +--------+ + | Former Smoker | | | 43 | Quit: 08/2016 | + +-------+ +--------+ + + +---+---+---+ | Smokeless Tobacco: | | | | | Former User | | | | + +---+---+---+ + + | Comments: very rer has cig. (socially). States has had 15 cigarettes total his whole | | life | + + + + +---------+ + | Alcohol Use | Drinks/We | oz/Week | Comments | | | ek | | | + + +---------+ + | No | | | | + + +---------+ + + + + | Sex Assigned at | Date Recorded | | | | + + + | Not on file | | + + + as of this encounter Plan of Treatment Not on fileas of this encounter Visit Diagnoses Not on filein this encounter"
--- OUTSIDE RECORDS SUMMARY | ~2018-11-18 | XMS | Clinical Summary ---
Demographics + + + | Address | [address] | | | [place] [address] | + + + | Home Phone | | + + + | Preferred Language | Unknown | + + + | Marital Status | | + + + | Cheondoism Affiliation | Unknown | + + + | Race | Unknown | + + + | Ethnic Group | Unknown | + + + Author + + + | Author | [facility] | + + + | Organization | [email or web address] [facility] | + + + | Address | Unknown | + + + | Phone | Unavailable | + + + Support + + +---------+ + | Name | Relationship | Address | Phone | + + +---------+ + | Contact,No | ECON | Unknown | | + + +---------+ + Care Team Providers + +------+ + | Care Operations/Dispatch Name | Role | Phone | + +------+ + | Geraldo Liu DO | PP | Unavailable | + +------+ + Allergies No Known Allergies Current Medications + + +--------+---------+------+------+-------+ | Prescription | Sig. | Disp. | Refills | Star | End | Statu | | | | | | t | Date | s | | | | | | Date | | | + + +--------+---------+------+------+-------+ | aspirin 81 MG | Take 1 tablet by | 30 | 11 | 08/27 | | Activ | | tablet | mouth daily. | tablet | | 09/13 | | e | | | | | | 18 | | | + + +--------+---------+------+------+-------+ | atorvastatin | Take 1 tablet by | 30 | 11 | 08/27 | | Activ | | (LIPITOR) 80 MG | mouth nightly. | tablet | | 1/20 | | e | | tablet | | | | 18 | | | + + +--------+---------+------+------+-------+ | metFORMIN | Take 1 tablet by | 60 | 0 | 01/3 | | Activ | | (GLUCOPHAGE) 1000 MG | mouth 2 (two) times | tablet | | 1/20 | | e | | tablet | daily with meals. | | | 18 | | | + + +--------+---------+------+------+-------+ | omeprazole | Take 20 mg by mouth | | | | | Activ | | (PRILOSEC) 20 MG | every morning before | | | | | e | | capsule | breakfast. | | | | | | + + +--------+---------+------+------+-------+ | Magnesium 250 MG | Take 250 mg by mouth | | | | | Activ | | TABS tablet | daily. | | | | | e | + + +--------+---------+------+------+-------+ | clopidogrel | Take 1 tablet by | 90 | 1 | 02/2 | | Activ | | (PLAVIX) 75 MG | mouth daily. Acute | tablet | | 1/20 | | e | | tablet | Coronary Syndrome: | | | 18 | | | | | Please discontinue | | | | | | | | after 1 year. | | | | | | + + +--------+---------+------+------+-------+ | losartan (COZAAR) | Take 1 tablet by | 90 | 2 | 02/2 | | Activ | | 50 MG tablet | mouth daily. | tablet | | 1/20 | | e | | | | | | 18 | | | + + +--------+---------+------+------+-------+ | atorvastatin | take 1 tablet by | 90 | 3 | 02/2 | | Activ | | (LIPITOR) 80 MG | mouth every evening | tablet | | 4/20 | | e | | tablet | | | | 19 | | | + + +--------+---------+------+------+-------+ | carvedilol (COREG) | take 1 tablet by | 120 | 1 | 03/2 | | Activ | | 12.5 MG tablet | mouth twice a day | tablet | | 2/20 | | e | | | with meals | | | 19 | | | + + +--------+---------+------+------+-------+ | carvedilol (COREG) | take 1 tablet by | 120 | 1 | 06/26 | 10/24 | Disco | | 12.5 MG tablet | mouth twice a day | tablet | | 02/11 | 10/14 | ntinu | | | with meals | | | 18 | 19 | ed | + + +--------+---------+------+------+-------+ Active Problems + + + | Problem | Noted Date | + + + | S/P CABG x 5 | 10/15/2017 | + + + + + | Overview: Op Report 09/18/2017CABG X 5. MACIAS to LAD, SVG to | | Diag, SVG to OM, SVG to PDA and SVG to PLV. | + + + + + | CAD (coronary artery disease) | 03/11/2014 | + + + | DM type 2 (diabetes mellitus, type 2) | 03/10/2014 | + + + | Dyslipidemia | 03/10/2014 | + + + | HTN (hypertension) | 03/10/2014 | + + + | AICD (automatic cardioverter/defibrillator) present | 02/01/2014 | + + + + + | Overview: Overview: | | Medtronic Evera XT DR ICD | + + + + + | Ischemic cardiomyopathy | 12/07/2013 | + + + Resolved Problems + + + + | Problem | Noted | Resolved | | | Date | Date | + + + + | Chest pain | 03/10/20 | | | | 14 | 4 | + + + + | Renal insufficiency | 03/10/20 | | | | 14 | 8 | + + + + Encounters +--------+--------+ + + + | Date | Type | Specialty | Care Team | Description | +--------+--------+ + + + | 11/13/ | Refill | | Danielle Cadena, | Medication Refill | | 2018 | | | MD | | +--------+--------+ + + + | 10/17/ | Refill | | Danielle Cadena, | Medication Refill | | 2018 | | | MD | | +--------+--------+ + + + from Last 3 Months Family History + + +------+ + | Medical History | Relation | Name | Comments | + + +------+ + | Malig hypertherm | Neg Hx | | | + + +------+ + Social History + +-------+ +--------+ + [...] + + + | Blood Pressure | 118/66 | 01/07/2018 10:26 AM PDT | + + + + | Pulse | 66 | 01/07/2018 10:26 AM PDT | + + + + | Temperature | 36.3 C (97.4 F) | 10/01/2017 11:22 AM PST | + + + + | Respiratory Rate | 19 | 09/24/2017 10:55 AM PST | + + + + | Oxygen Saturation | 98% | 01/07/2018 10:26 AM PDT | + + + + | Inhaled Oxygen | - | - | | Concentration | | | + + + + | Weight | 101.2 kg (223 lb 1.6 | 01/07/2018 10:26 AM PDT | | | oz) | | + + + + | Height | 177.8 cm (5' 10") | 01/07/2018 10:26 AM PDT | + + + + | Body Mass Index | 32.01 | 01/07/2018 10:26 AM PDT | + + + + Plan of Treatment + + + + + | Health Maintenance | Due Date | Last Done | Comments | + + + + + | Diabetic Eye Exam | | | | | | 8 | | | + + + + + | Diabetic Foot Exam | | | | | | 8 | | | + + + + + | Microalbumin | | | | | Screening | [...] | + + + + + | Colon Cancer | | | | | Screening | 8 | | | | (Colonoscopy) | | | | + + + + + | Vaccine: Zoster (1 | | | | | of 2) | 8 | | | + + + + + | Hemoglobin A1c | | 09/19/2017 | | | | 8 | | | + + + + + | Vaccine: Influenza | | | | | (#1) | 8 | | | + + + + + Results Not on filefrom Last 3 Months Insurance + +--------+ +------+-------+ + | Payer | Benefi | Subscriber | Type | Phone | Address | | | t Plan | ID | | | | | | / | | | | | | | Group | | | | | + +--------+ +------+-------+ + | MEDICAID | [employer] | [id number] | | | [address] | | | N | | | | [place] | | | [place] | | | | [phone] | | | [employer] | | | | | + +--------+ +------+-------+ + + +--------+ +--------+ + + | Guarantor Name | Accoun | Relation to | Date | Phone | Billing Address | | | t Type | Patient | of | | | | | | | | | | + +--------+ +--------+ + + | JOSHUA CHATMAN JR. | Person | Self [birth year] | Home: | [address] | | | al/Fam | | 1960 | [phone] [address] [place] | | | [place] | | | [address] | [phone] | + +--------+ +--------+ + +
--- OUTSIDE RECORDS SUMMARY | ~2018-11-18 | XMS | Clinical Summary ---
Demographics + + + | Address | [address] | | | [place] [address] | + + + | Home Phone | | + + + | Preferred Language | Unknown | + + + | Marital Status | | + + + | Scientologist Affiliation | Unknown | + + + | Race | Unknown | + + + | Ethnic Group | Unknown | + + + Author + + + | Author | [facility] | + + + | Organization | [facility] | + + + | Address | Unknown | + + + | Phone | Unavailable | + + + Support + + +---------+ + | Name | Relationship | Address | Phone | + + +---------+ + | Contact,No | ECON | Unknown | | + + +---------+ + Care Team Providers + +------+ + | Care Manager Risk Name | Role | Phone | + [...] +------+-------+ + | MEDICAID | [employer] | [id number] | | | [address] | | | N | | | | [place] | | | [place] | | | | [phone] | | | DYE STAND LOADER | | | | | + +--------+ [...] Self [birth year] | Home: | [address] | | | al/Fam | | 1960 | [phone] [address] [place] | | | [place] | | | [address] | [phone] | + +--------+ +--------+ + +
--- OUTSIDE RECORDS SUMMARY | ~2018-11-18 | XMS | Encounter Summary ---
Demographics + + + | Address | [address] | | | [place] [address] | + + + | Home Phone | | + + + | Preferred Language | Unknown | + + + | Marital Status | | + + + | Sikh Affiliation | Unknown | + + + | Race | Unknown | + + + | Ethnic Group | Unknown | + + + Author + + + | Author | [facility] [employer] | + + + | Organization | [facility] | + + + | Address | Unknown | + + + | Phone | Unavailable | + + + Support + + +---------+ + | Name | Relationship | Address | Phone | + + +---------+ + | Contact,No | ECON | Unknown | | + + +---------+ + Care Team Providers + +------+ + | Care Research Kennel Supervisor Name | Role | Phone | + [...] + + | 11/13/ | Refill | [facility] [place] | Danielle Cadena, | Medication Refill | | 2019 | | [facility]iology [place] | [address] | | | | | [address] | [address], | | | | | [facility] [address] | [place] [address] | | | | | [place] [address] | [phone] | | | | | [phone] | | | +--------+--------+ + + + [...]
--- OUTSIDE RECORDS SUMMARY | ~2018-11-18 | XMS | Encounter Summary ---
Demographics + + + | Address | [address] | | | [place] [address] | + + + | Home Phone | | + + + | Preferred Language | Unknown | + + + | Marital Status | | + + + | Scientology Affiliation | Unknown | + + + | Race | Unknown | + + + | Ethnic Group | Unknown | + + + Author + + + | Author | [facility] | + + + | Organization | [facility] [facility] | + + + | Address | Unknown | + + + | Phone | Unavailable | + + + Support + + +---------+ + | Name | Relationship | Address | Phone | + + +---------+ + | Contact,No | ECON | Unknown | | + + +---------+ + Care Team Providers + +------+ + | Care Digital Media Analyst Name | Role | Phone | + [...] + | 10/17/ | Refill | [facility] | Danielle Cadena, | Medication Refill | | 2019 | | [facility] [place] | [address] | | | | | [address] | [address], | | | | | [facility] [address] | [place] [address] | | | | | [place] [address] | [phone] | | | | | [phone] | | | +--------+--------+ + + + [...]
--- OUTSIDE RECORDS SUMMARY | ~2018-11-18 | XMS | Encounter Summary ---
Demographics + + + | Address | [address] | | | [place] [address] | + + + | Home Phone | | + + + | Preferred Language | Unknown | + + + | Marital Status | | + + + | Episcopalian Affiliation | Unknown | + + + | Race | Unknown | + + + | Ethnic Group | Unknown | + + + Author + + + | Author | [facility] | + + + | Organization | [facility] [facility] [facility] | + + + | Address | Unknown | + + + | Phone | Unavailable | + + + Support + + +---------+ + | Name | Relationship | Address | Phone | + + +---------+ + | Contact,No | ECON | Unknown | | + + +---------+ + Care Team Providers + +------+ + | Care Sap Consultant Name | Role | Phone | + [...] + | 11/13/ | Refill | [facility] [place] | Danielle Cadena, | Medication Refill | | 2019 | | [facility] [place] | [address] | | | | | [address] | [address], | | | | | [facility] [address] | [place] [address] | | | | | [place] [address] | [phone] | | | | | [phone] | | | +--------+--------+ + + + [...]
[~2018-11-18 09:37] MED LIST changes: +METHYLPREDNISOLO4 M1 PO
== END 2018-11-18 11:17 | disposition home or self-care (01) ==
LOC: ED 09:37
DX: N48.89 Other specified disorders of penis (principal); I10 Essential (primary) hypertension; E78.5 Hyperlipidemia, unspecified; I25.2 Old myocardial infarction; E11.9 Type 2 diabetes mellitus without complications; Z88.8 Allergy status to other drugs, medicaments and biological substances; Z88.1 Allergy status to other antibiotic agents; Z79.899 Other long term (current) drug therapy; Z79.82 Long term (current) use of aspirin; Z79.84 Long term (current) use of oral hypoglycemic drugs
CPT/HCPCS: 81001; 87491; 87591; 99283

== ENCOUNTER 2019-01-27 03:59 | Inpatient (IN) | payer OTHER ==
[~2019-01-27] VITALS: Ht 175.3 cm; Wt 107.5 kg
[~2019-01-27 03:59] MED LIST changes: -COREG25 MG PO
--- NOTE | 2019-01-27 07:34 | NUR ---
58 year old male patient admitted TO CCU FROM ER VIA STRETCHER FROM ER WITH DX OF SEPSIS R/T UTI. UPON ADMIT PATIENT IS ALERT ORIENTED AND COOPERATIVE. IVF INFUSING PER ORDERS. 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 DENEIS SHORTNESS OF BREATH.
--- NOTE | 2019-01-27 08:30 | NUR ---
STOOD AT BEDSIDE TO VOID 210 ML OF CONSENTRATED URINE. DENIES PAINFUL URINATION AT THIS TIME, NOT FOUL SMELLING. BACK TO BED W/O INCIDENT. IS STABLE ON FEET, DENIES DIZZINESS.
--- NOTE | 2019-01-27 09:00 | NUR ---
DR. IRIZARRY HERE TO SEE PATIENT. PATIENT IS SITTING UP IN BED. IS ABLE TO ANSWERE QUESTIONS W/O DELAY. IVF LR INFUSING AT 100 ML/HR.
--- NOTE | 2019-01-27 10:52 | NUR ---
NAPPING AT THIS TIME. NO DISTRESS NOTED.
[2019-01-27] MEDS ORDERED: TAMSULOSIN HCL0.4 MG PO (11:03)
[2019-01-27] MEDS ORDERED: LOSARTAN POTASS50 MG PO (11:04)
[2019-01-27] MEDS ORDERED: ATORVASTATIN CA80 MG PO (11:05)
--- NOTE | 2019-01-27 12:00 | NUR ---
ASSESSMENT DONE. HAS RED AREA ON LEFT LOWER LEG. PATIENT SAID HE HAS HX OF CELLULITIS OF LEFT LEG IN PAST. LEG MARKED WITH SKIN PEN. HAS PAIN IN RED AREA WHEN PRESSURE APPLIED. WILL NOTIFY DR. IRIZARRY REGARDING THIS. TYLENOL 500 MG PO GIVEN FOR HEADACHE, NECK AND EYE PAIN. ACCUCHECK-150, REG INSULIN 1 UNIT SQ GIVEN.
--- NOTE | 2019-01-27 13:00 | NUR ---
TOOK LUNCH WELL. CONTINUE TO C/O PRESSURE IN HEAD. IS TRYING TO SLEEP. IVF CONTINUE TO INFUSE AT 100 ML/HR.
[2019-01-27] MEDS ORDERED: MAGNESIUM250 MG PO (13:23)
--- NOTE | 2019-01-27 15:27 | NUR ---
CONTINUE TO SLEEP, NO DISTRESS NOTED.
--- NOTE | 2019-01-27 17:39 | NUR ---
Medications reconciled using pharmacy records and patient interview
--- NOTE | 2019-01-27 18:15 | NUR ---
DR. IRIZARRY HERE TO ASSESS RED AREA ON LEFT LEG. NO FUTHER ORDERS RECIEVED AT THIS TIME.
--- NOTE | 2019-01-27 19:38 | NUR ---
REPORT TO NEXT SHIFT. PATIENT IS ASLEEP.
--- NOTE | 2019-01-27 20:00 | NUR ---
Assisted patient to stand at bedside to urinate, patient tolerated well, now resting in bed again. Denies further needs, vitals WNL, IVF infusing per order. Call light within reach.
--- NOTE | 2019-01-27 21:20 | NUR ---
Assisted patient to bathroom to have BM, gait steady. Now resting in bed again. Assessment done, patient is alert and oriented x4, follows commands appropriately. HR and BP WNL, peripheral pulses well felt in all extremities. Lungs are clear, breathing is even and unlabored, SpO2 98% on room air. Patient reports having a stomach ache, reports nausea, bowel tones are active. Reddened area noted on left lower leg, reddened area maintained within outlined border, warm to touch. Patient denies further needs at this time, IVF infusing per order, vitals WNL, call light within reach.
--- NOTE | 2019-01-27 21:28 | NUR ---
4mg PRN IV zofran given for nausea. Denies further needs at this time. Call light within reach.
--- NOTE | 2019-01-27 23:06 | NUR ---
Assisted patient to bathroom, patient states "I have a pretty bad stomach ache." Patient able to have bowel movement, soft. Now back in bed, states that stomache ache feels better after BM, now reports 8/10 headache that comes and goes. 500mg PO PRN tylenol given, temperature of 99.2 oral noted. Denies further needs. Call light within reach.
--- NOTE | 2019-01-28 | NUR ---
Assisted patient to stand at bedside to void, now resting in bed again. Assessment done, no acute changes from previous, denies needs at this time. Vitals WNL, call light within reach.
--- NOTE | 2019-01-28 01:35 | NUR ---
Patient resting comfortably in bed, breathing is even and unlabored, vitals WNL, FLACC score 0. IVF infusing per order, call light within reach.
--- NOTE | 2019-01-28 02:36 | NUR ---
Assisted patient to bedside to void, now resting confortably in bed again, denies further needs. Call light within reach, vitals WNL.
--- NOTE | 2019-01-28 03:30 | NUR ---
Restful with eyes closed, breathing is even and unlabored, vitals WNL. Call light within reach, IVF infusing per order.
--- NOTE | 2019-01-28 04:42 | NUR ---
Assessment done, no acute changes from previous. Patient states that he has mild headache, denies need for pain medication. Denies needs at this time, call light within reach, vitals WNL.
--- NOTE | 2019-01-28 05:36 | NUR ---
Restful with eyes closed, call light within reach.
--- NOTE | 2019-01-28 08:00 | NUR ---
Assessment completed see flowsheet. Pt awake in bed A&Ox4 VSS on RA. Pt ordered breakfast. No needs or complaints voiced at this time. Will continue to monitor.
--- NOTE | 2019-01-28 10:10 | NUR ---
Pt resting in bed. No needs voiced at this time. VSS will continue to monitor
--- NOTE | 2019-01-28 11:30 | NUR ---
PATIENT SITTING UP IN CHAIR. RN IN ROOM. PATIENT'S LUNCH ORDERED. CALL LIGHT WITHIN REACH. NO OTHER NEEDS AT THIS TIME
--- NOTE | 2019-01-28 11:37 | NUR ---
PT RECEIVED FROM CCU. PT ORIENTED TO ROOM. PT SITTING IN CHAIR. PT ON ROOM AIR, LUNG SOUNDS CLEAR. PT DENIES PAIN. CMS INTACT. IV SALINE LOCKED, DISCUSSED PLAN FOR IV MAGNESIUM. PT ASSISTED TO ORDER LUNCH. PT DENIES OTHER NEEDS AT THIS TIME.
--- NOTE | 2019-01-28 12:54 | NUR ---
PATIENT AMBULATING IN THE HALLWAY
--- NOTE | 2019-01-28 13:04 | NUR ---
PATIENT SITTING UP IN CHAIR. VITAL SIGNS AND I&O DONE. CALL LIGHT WITHIN REACH. NO OTHER NEEDS AT THIS TIME
--- NOTE | 2019-01-28 13:46 | NUR ---
PT COMPLAINT OF BURNING FROM AMGNESIUM INFUSIN, IV SITE ASSESSED, PATENT, BRISK BLOOD RETURN. MAGNESIUM INFUSION RAN CONCURRENTLY WITH NS, PT CONTINUED TO REPORT PAIN, INFUSION STOPPED. PT REFUSING TO TRY MAGNESIUM AT SLOWER RATE. NOTIFIED, PT RECEIVED APPROXIMATELY 1G OF MAGNESIUM, NO NEW ORDERS.
--- NOTE | 2019-01-28 14:48 | NUR ---
IV AZTREONAM GIVEN PER ORDER. PT INDEPENDENT TO BATHROOM, VOIDED AND HAD BM. PT RESTING IN BED. PT DENIES OTHER NEEDS AT THIS TIME.
--- NOTE | 2019-01-28 15:43 | NUR ---
CALL LIGHT ANSWERED. PATIENT SITTING UP IN BED. IN ROOM. PATIENT GOES TO USE BATHROOM. PATIENT USES A WALKER. ONE PERSON ASSISTING. PATIENT BACKS TO BED. WARM BLANKET AND ICE PACK PROVIDED. CALL LIGHT WITHIN REACH. NO OTHER NEEDS AT THIS TIME
--- NOTE | 2019-01-28 15:45 | NUR ---
ABX INFUSION COMPLETED, IV SALINE LOCKED. PT DENIES NEEDS AT THIS TIME.
--- NOTE | 2019-01-28 15:56 | NUR ---
CALL LIGHT ANSWERED. PATIENT SITTING UP IN BED. IV WRAPPED. SETS UP BATHROOM FOR SHOWER. CALL LIGHT WITHIN REACH. NO OTHER NEEDS AT THIS TIME
--- NOTE | 2019-01-28 17:02 | NUR ---
PATIENT IN BED WATCHING TV. VITAL SIGNS AND I&O DONE. CALL LIGHT WITHIN REACH. NO OTHER NEEDS AT THIS TIME
--- NOTE | 2019-01-28 17:17 | NUR ---
PT GIVEN 1 UNIT SS HUMALOF FOR BLOOD GLUCOSE 166. PT RESTING IN BED. PT DENIES OTHER NEEDS AT THIS TIME.
--- NOTE | 2019-01-28 18:30 | NUR ---
PT TRANSFERED FROM CCU. PT ON ROOM AIR, LUNG SOUNDS CLEAR. PT DENIES PAIN. IV AZTREONAM GIVEN, SALINE LOCKED. PT INDEPENDENT IN ROOM. PT TOLERATING CARDIAC/60G CARB CONTROL DIET, GOOD APPETITE, 1 UNITS SS HUMALOG AT DINNER FOR BG 166. PT VOIDING QS, HAD BM TODAY.
--- NOTE | 2019-01-28 19:30 | NUR ---
REPORT RECEIVED, PT RESTING IN BED, LEFT LEG VISUALIZED, PT DENIES ANY PAIN ASSOCIATED WITH IT AT THIS TIME. SOME PINK COLORATION WITHIN OUTLINES, NO NOTABLE WARMTH. CALL LIGHT WITHIN REACH.
--- NOTE | 2019-01-28 21:30 | NUR ---
PT AOX4, RESTING IN BED, NO REQUESTS AT THIS TIME, ASSESSMENT COMPLETE, PT'S BT ACTIVE, NO C/O PAIN, LS CLEAR, PT INDEPENDENT IN ROOM. IV ABX STARTED. PT'S CBG 170, INSULIN COVERAGE PROVIDED PER EMAR. CALL LIGHT WITHIN REACH. FALL PRECAUTIONS IN PLACE.
--- NOTE | 2019-01-28 22:30 | NUR ---
IV ABX COMPLETE, PT RESTING IN BED, NO REQUESTS AT THIS TIME, CALL LIGHT WITHIN REACH.
--- NOTE | 2019-01-29 00:42 | NUR ---
PT RESTING IN BED, EYES CLOSED, BREATHS EVEN UNLABORED, NO REQUESTS AT THIS TIME, CALL LIGHT WITHIN REACH.
--- NOTE | 2019-01-29 02:00 | NUR ---
PT RESTING IN BED, STATES THAT HE WAS FEELING A LITTLE SOB EARLIER BUT DENIES ANY AT THIS TIME, PT'S O2 SAT > 95, CALL LIGHT WITHIN REACH. FALL PRECAUTIONS IN PLACE.
--- NOTE | 2019-01-29 04:00 | NUR ---
PT RESTING IN BED, EYES CLOSED, BREATHS EVEN, UNLABORED, NO REQUESTS AT THIS TIME, CALL LIGHT WITHIN REACH.
--- NOTE | 2019-01-29 04:53 | NUR ---
PT AOX4, APPROPRIATE, PT SLEPT MOST OF SHIFT, INDEPENDENT IN ROOM, NO C/O PAIN, IV SL, IV ABX INFUSED PER EMAR WNL. NO INCREASED REDNESS OR WARMTH NOTED IN LLE CELLULITIS, NO C/O PAIN OR DISCOMFORT ASSOCIATED WITH CELLULITIS, PT'S UO QS, VSS, USES CALL LIGHT APPROPRIATELY, TOLERATING DIET WELL.
--- NOTE | 2019-01-29 07:20 | NUR ---
BEDSIDE HANDOFF REPORT RECEIVED FROM PHOTOCOMPOSING MACHINE OPERATOR RN. PT SLEEPING, LEFT UNDISTURBED.
--- NOTE | 2019-01-29 08:45 | NUR ---
PT RESTING IN BED. PT ON ROOM AIR, LUNG SOUNDS CLEAR. PT DENIES PAIN. PT TOLERATING DIET, DENIES NAUSEA, BOWEL TONES ACTIVE, BLOOD GLUCOSE 119, SS HUMALOG HELD. PT WIHTOUT EDEMA, CMS INTACT, REDNESS TO LEFT LEG IMPROVING. IV SALINE LOCKED. DISCUSSED PLAN OF CARE FOR THE DAY. PT DENIES OTHER NEEDS AT THIS TIME.
--- NOTE | 2019-01-29 09:19 | NUR ---
PATIENT SITTING UP IN BED WATCHING TV. VITAL SIGNS AND I&O DONE. CALL LIGHT WITHIN REACH. NO OTHER NEEDS AT THIS TIME
[2019-01-29] MEDS ORDERED: BACTRIM DS TAB1 EACH PO (10:34)
--- NOTE | 2019-01-29 11:05 | NUR ---
PATIENT IN BED WATCHING TV. PATIENT REFUSED TO TAKE A SHOWER TODAY BECAUSE HE TOOK A SHOWER YESTERDAY AND THINKS HE IS GOING TO BE DISCHARGED TODAY.
--- NOTE | 2019-01-29 11:12 | NUR ---
PATIENT SITTING UP IN CHAIR. FINAL VITAL SIGNS WERE OBTAINED PRIOR TO DISCHARGE FROM THE UNIT.
== END 2019-01-29 11:35 | disposition home or self-care (01) | DRG 872 ==
LOC: ED 03:59 → CCU 07:22 → MS 01-28 11:20
PROVIDERS: ADMIT Internal Medicine
DX: A41.51 Sepsis due to Escherichia coli [E. coli] (principal); N30.00 Acute cystitis without hematuria; L03.116 Cellulitis of left lower limb; I10 Essential (primary) hypertension; E78.5 Hyperlipidemia, unspecified; I25.2 Old myocardial infarction; E66.9 Obesity, unspecified; I25.10 Atherosclerotic heart disease of native coronary artery without angina pectoris; E11.9 Type 2 diabetes mellitus without complications; N40.1 Benign prostatic hyperplasia with lower urinary tract symptoms; R39.14 Feeling of incomplete bladder emptying; Z87.891 Personal history of nicotine dependence; Z95.1 Presence of aortocoronary bypass graft; Z95.5 Presence of coronary angioplasty implant and graft; Z79.84 Long term (current) use of oral hypoglycemic drugs; Z79.82 Long term (current) use of aspirin; Z79.899 Other long term (current) drug therapy; Z88.1 Allergy status to other antibiotic agents; Z88.8 Allergy status to other drugs, medicaments and biological substances; Z68.35 Body mass index [BMI] 35.0-35.9, adult
CPT/HCPCS: 36415; 74177; 80053; 81001; 83605; 83690; 83735; 85025; 87077; 87088; 87186; 94760; 99285-25; J1170; J1650; J1815; J2405; J3475; J3490; J7030; J7060; J7120; Q9967